=== PATIENT | female | born 1960 | race Two or more races ===

== ENCOUNTER 2020-06-25 10:30 | Outpatient (REF) | payer OTHER, SELFPAY | END 2020-06-25 10:31 | disposition home or self-care (01) | LOC: HO.LAB 10:30 | PROVIDERS: PCP Internal Medicine; Visit Provider Internal Medicine | DX: Z20.822 Contact with and (suspected) exposure to COVID-19 (principal) | CPT/HCPCS: 36415; C9803; U0003 ==

== ENCOUNTER 2020-07-24 13:09 | Outpatient (REF) | payer OTHER, SELFPAY ==
--- NOTE | ~2020-07-24 | MM_ITS ---
EXAMINATION: MM SCREENING DIGITAL BREAST TOMOSYNTHESIS, BILATERAL CLINICAL INFORMATION: Screening. Asymptomatic. The lifetime risk of breast cancer based on the Tyrer-Cuzick Model is 6.0%. COMPARISON: Mammography: 01/17/2020, 07/18/2019, and 07/12/2019. TECHNIQUE: Digital breast tomosynthesis is performed in both the craniocaudal and mediolateral oblique views along with computer-aided detection (CAD). Synthesized 2D images are generated from the tomosynthesis. FINDINGS: There are scattered areas of fibroglandular density (ACR BI-RADS breast composition Category b). There is some developing calcifications again noted within the upper outer aspect of the right breast, similar to prior calcifications and associated with a circumscribed density likely representing calcifying fibroadenoma. Within the superior aspect of the left breast, approximately 6 cm from the nipple, there is a partially circumscribed density measuring 5 x 4 mm in size for which spot compression view and possible ultrasound is recommended. I do not see a corresponding density on craniocaudal imaging. MM/MM tomosynthesis screening BI IMPRESSION: Left breast superior density for which spot compression film in mediolateral oblique projection as well as 90-degree mediolateral view is recommended. If there is persistence of density, then recommend ultrasound evaluation. ASSESSMENT: BI-RADS 0: Incomplete - Need Additional Imaging Evaluation RECOMMENDATION: 1. Additional views of the left breast. 2. Targeted ultrasound if warranted after review of the additional views. 3. Radiology department staff will contact the patient for additional imaging. This patient's information was entered into a reminder system with a target due date for their next mammogram.
--- NOTE | ~2020-07-24 | MM_ITS ---
EXAMINATION: BONE DENSITOMETRY CLINICAL INDICATION: Screening for osteoporosis. COMPARISON: None (current study represents initial baseline exam). TECHNIQUE: Using a [employer] DXA System (software version: 13.1) manufactured by [employer], dual-energy x-ray absorptiometry was performed of the lumbar spine and left hip. The images are of good technical quality. Summary results are attached. FINDINGS: AP SPINE L1-L4: BMD 0.916 g/cm2, Z-score -0.8, T-score -2.2, osteopenia. LEFT FEMUR, NECK: BMD 0.723 g/cm2, Z-score -0.9, T-score -2.3, osteopenia. LEFT FEMUR, TOTAL: BMD 0.806 g/cm2, Z-score -0.6, T-score -1.6, osteopenia. IDENTIFIED RISK FACTORS: Menopause. HISTORY OF FRACTURE: None listed. MEDICATIONS: Multivitamin, vitamin D. MM/XR DEXA axial skeleton IMPRESSION: 1. DIAGNOSIS: Osteopenia based on the lowest T-score value of -2.3 in the femoral neck applying World Health Organization criteria. 2. 10-YEAR FRACTURE RISK PREDICTION, FRAX: Major osteoporotic fracture (clinical spine, forearm, hip or shoulder) 5.6%. Hip fracture 0.9%. 3. Treatment Recommendations: NOF guidelines recommend consideration for treatment in postmenopausal women and men age 50 and older presenting with the following: -A hip or vertebral (clinical or morphometric) fracture. -T-score less than or equal to -2.5 at the femoral neck or spine after appropriate evaluation to exclude secondary causes. -Low bone mass at the hip or spine and a 10-year fracture probability by FRAX of greater than or equal to 3% for hip fracture or greater than or equal to 20% for major osteoporotic fracture based on the [place] adapted WHO algorithm. 4. Other Recommendations: All treatment decisions require clinical judgment and consideration of individual patient factors, including patient preferences, comorbidities, previous drug use, risk factors not captured in the FRAX model (e.g. frailty, falls, vitamin D deficiency, increased bone turnover, interval significant decline in bone density) and possible under or overestimation of fracture risk by FRAX. Additional medical evaluation for secondary cause of low bone mineral density may be appropriate. FUTURE SCAN RECOMMENDATION: People with diagnosed cases of osteoporosis or at high risk for fracture should have regular bone mineral density tests. For patients eligible for Medicare, routine testing is allowed once every 2 years. The testing frequency can be increased to one year for patients who have rapidly progressing disease, those who are receiving or discontinuing medical therapy to restore bone mass, or have additional risk factors.
== END 2020-07-24 13:10 | disposition home or self-care (01) ==
LOC: HO.MAMMO 13:09
PROVIDERS: PCP Internal Medicine; Visit Provider Internal Medicine
DX: Z12.31 Encounter for screening mammogram for malignant neoplasm of breast (principal); Z13.820 Encounter for screening for osteoporosis; Z78.0 Asymptomatic menopausal state
CPT/HCPCS: 77063; 77067; 77080

== ENCOUNTER 2020-09-20 12:51 | Outpatient (REF) | payer OTHER, SELFPAY ==
--- NOTE | ~2020-09-20 | MM_ITS ---
EXAMINATION: MM DIAGNOSTIC DIGITAL BREAST TOMOSYNTHESIS, LEFT CLINICAL INFORMATION: Recall for asymmetric density upper left breast at screening limited to MLO view. COMPARISON: Mammography: 07/24/2020, 01/17/2020, 07/12/2019 TECHNIQUE: Digital breast tomosynthesis is performed. 2D images are generated from the tomosynthesis. The following views are obtained: 3-D spot MLO, 3-D spot ML FINDINGS: There are scattered areas of fibroglandular density (ACR BI-RADS breast composition Category b). Additional views show no persistent asymmetric density. There is no mass or architectural abnormality. Results are discussed with the patient at time of visit. MM/MM tomosynthesis added views L IMPRESSION: Additional views show no persistent asymmetric density. ASSESSMENT: BI-RADS 1: Negative RECOMMENDATION: Routine annual mammography screening. This patient's information was entered into a reminder system with a target due date for their next mammogram.
== END 2020-09-20 12:52 | disposition home or self-care (01) ==
LOC: HO.MAMMO 12:51
PROVIDERS: PCP Internal Medicine; Visit Provider Internal Medicine
DX: R92.2 Inconclusive mammogram (principal)
CPT/HCPCS: 77061; 77065

== ENCOUNTER 2020-11-01 10:45 | Outpatient (REF) | payer OTHER, SELFPAY ==
[2020-11-01 12:58] LABS: Alanine Aminotransferase 22 U/L (0-31); Albumin Level 4.3 g/dL (3.5-5.0); Alkaline Phosphatase 101 U/L (39-117); Anion Gap 12 (12-20); Aspartate Amino Transferase 18 U/L (5-31); Bilirubin Total 0.4 mg/dL (0.0-1.0); Blood Urea Nitrogen 13 mg/dL (9-16); Calcium 9.7 mg/dL (8.4-10.2); Carbon Dioxide 27 mmol/L (22-29); Chloride 105 mmol/L (96-108); Cholesterol 217 mg/dL; Estimated Glomerular Filt Rate > 60; Glucose Fasting 100 mg/dL (60-99); HDL Cholesterol 45 mg/dL; LDL Cholesterol Calculated 145 mg/dl; Potassium 4.3 mmol/L (3.3-5.1); Sodium 140 mmol/L (135-145); Total Protein 7.9 g/dL (6.5-8.0); Triglycerides 135 mg/dL
== END 2020-11-01 10:46 | disposition home or self-care (01) ==
LOC: HO.LAB 10:45
PROVIDERS: PCP Internal Medicine; Visit Provider Internal Medicine
DX: I10 Essential (primary) hypertension (principal); E78.5 Hyperlipidemia, unspecified
CPT/HCPCS: 36415; 80053; 80061

== ENCOUNTER 2022-01-18 09:34 | Emergency (ER) | payer OTHER, SELFPAY ==
[2022-01-18 09:54] VITALS: BP 185/84; PULSE 79; RESP 17; TEMP 36.6; O2SAT 95
[2022-01-18 11:23] VITALS: BP 186/100; PULSE 79; RESP 18; TEMP 37.2; O2SAT 97; BMI 24.8
[2022-01-18 15:19] VITALS: BP 185/79; PULSE 82; RESP 16; TEMP 36.4; O2SAT 94
[2022-01-18] MEDS: predniSONE 20 MG TABLET 60 MG PO (16:27)
[2022-01-18] MEDS: Loratadine 10 MG TABLET PO (16:27)
--- NOTE | 2022-01-18 17:21 | ED.GENADULT ---
HPI - General Adult General Chief complaint: Skin/Abscess/Foreign Body Stated complaint: allergic reaction to medication Time Seen by Provider: 01/18/22 15:19 History of Present Illness HPI narrative: Patient complains of itchy rash on hands and left elbow, also wants sunburn on left foot checked [place] and was seen in urgent care for this and was given Keflex to prevent infection She developed the rash in the webspace of her fingers and a red itchy rash on the left elbow over past several days, there is no swelling of lips or mouth, there is no difficulty breathing Related Data Home Medications Medication Instructions Recorded Confirmed calcium carbonate 600 mg-vitamin tab PO 11/19/20 11/19/20 D3 10 mcg (400 unit) chewable tablet (Calcium 600 with Vitamin D3) Previous Rx's Medication Instructions Recorded amlodipine 2.5 mg tablet 2.5 mg PO DAILY 90 days #90 tabs 11/07/20 bacitracin 500 unit/gram topical 1 appl topical Q12H 5 days #28 01/18/22 ointment grams bacitracin 500 unit/gram topical 1 appl topical TID 5 days #28 grams 01/18/22 ointment loratadine 10 mg tablet (Claritin) 10 mg PO DAILY PRN allergic 01/18/22 symptoms #14 tabs permethrin 5 % topical cream 1 appl topical Q14D 2 doses #60 01/18/22 grams permethrin 5 % topical cream 1 appl topical Q14D 2 doses #60 01/18/22 (Elimite) grams prednisone 20 mg tablet 40 mg PO DAILY 2 days #4 tabs 01/18/22 prednisone 20 mg tablet 40 mg PO DAILY 2 days #4 tabs 01/18/22 Allergies Allergy/AdvReac Type Severity Reaction Status Date / Time animal dander Allergy Intermediate Runny Nose Verified 11/19/20 11:45 grass pollen Allergy Intermediate Runny Nose Verified 11/19/20 11:45 house dust Allergy Intermediate Runny Nose Verified 11/19/20 11:45 Review of Systems Review of Systems: Positive for rash Negatives are no fever no chills no dizziness or weakness no headache no sore throat no difficulty breathing or swallowing no chest pain no shortness of breath no nausea no vomiting no joint swelling Yes all other systems are reviewed and are negative PMFSH Past Medical History Source: nursing notes reviewed Medical History Dyslipidemia Essential hypertension Osteopenia Surgical History History of section History of laparoscopic cholecystectomy Family History Family History Father Stroke Hypertension CVD (cardiovascular disease) Mother Hypertension Diabetes Brother No problems noted. Sister No problems noted. Son No problems noted. Social History Social History Alcohol intake: current Alcohol intake frequency: holidays/special occasions only Alcohol type: wine Patient Tobacco Use Status: Never used Tobacco Tobacco use type: Cigarette Use of substances other than those prescribed or required for medical reasons: No Advance Directives: No Advance Directives Information Provided: No Physical Exam ED Vital Signs: Vital Signs - 24 hr 01/18/22 09:54 01/18/22 11:23 01/18/22 15:19 Temperature 97.9 F 98.9 F 97.6 F Pulse Rate 79 79 82 Respiratory Rate 17 18 16 Blood Pressure 185/84 H 186/100 H 185/79 H Pulse Oximetry 95 97 94 Oxygen Delivery Method Room Air Room Air BMI result Body Mass Index 24.8 General appearance is no acute distress The eyes no redness or discharge The nose not congested The pharynx no swelling of lips tongue uvula or throat, no drooling, voice is normal Neck is supple The chest is clear with full symmetric equal breath sounds Heart no murmur Extremities full range of motion x4 Skin there is a red raised rash on the feet and between the fingers The left foot has some week being blistered skin from the sunburn there is no red area, there is no warmth there is no fluctuance no pus no sign of infection There is full range of motion in the left ankle in the left foot Course Course Course Narrative: Patient was taking Keflex developed a rash The Keflex was to prevent infection in the marcelino The marcelino on her foot are not infected and so I stop the Keflex as it may be causing some type of skin reaction As she did have a very itchy raised rash in the web spaces of both hands I wrote for treatment for possible scabies with permethrin Discharge Plan Discharge Clinical Impression: Rash, Sunburn, Scabies Patient Disposition: Home, Self-Care Additional Instructions: The sunburn on her foot does not look infected but best plan is to put bacitracin or antibiotic ointment on it twice a day The itchy rash on her arms may be scabies so use permethrin as directed Four itch in inflammation I wrote for Claritin and prednisone Return any time any worse condition or any concerns Stop taking the Keflex as there is no cellulitis or infection and there is a possibility it is causing the rash Prescriptions: New permethrin 5 % cream 1 appl topical Q14D Qty: 60 0RF Rx Instructions: Apply to whole body below scalp, leave on for 12 hours then shower off Repeat in 2 weeks loratadine [Claritin] 10 mg tablet 10 mg PO DAILY PRN (Reason: allergic symptoms) Qty: 14 0RF prednisone 20 mg tablet 40 mg PO DAILY 2 Days Qty: 4 0RF bacitracin 500 unit/gram ointment 1 appl topical Q12H 5 Days Qty: 28 0RF prednisone 20 mg tablet 40 mg PO DAILY 2 Days Qty: 4 0RF permethrin [Elimite] 5 % cream 1 appl topical Q14D Qty: 60 0RF Rx Instructions: Apply to whole body below hairline and leave on for 12 hours then rinse off in shower Repeat in 14 days bacitracin 500 unit/gram ointment 1 appl topical TID 5 Days Qty: 28 0RF No Action amlodipine 2.5 mg tablet 2.5 mg PO DAILY 90 Days Qty: 90 3RF Calcium 600 with Vitamin D3 600 mg(1,500mg) -400 unit tablet,chewable PO Stand Alone Forms: Work/School Release Interventions: ED Discharge Assessment Last Done: 01/18/22 16:38 Discharge Date/Time: 01/18/22 16:38
== END 2022-01-18 16:38 | disposition home or self-care (01) ==
PROVIDERS: Emergency Provider Emergency Medicine; PCP Family Medicine
DX: B86 Scabies (principal); R21 Rash and other nonspecific skin eruption; L56.8 Other specified acute skin changes due to ultraviolet radiation; X32.XXXA Exposure to sunlight, initial encounter; Y93.89 Activity, other specified; Y92.832 Beach as the place of occurrence of the external cause; Y99.8 Other external cause status; E78.5 Hyperlipidemia, unspecified; I10 Essential (primary) hypertension
CPT/HCPCS: 99283; 99284